=== PATIENT | male | born 1960 | race Caucasian/White ===

== ENCOUNTER → 2018-08-22 | Outpatient (CLI) | payer MEDICARE, OTHER ==
[2018-08-22 11:40] LABS: COLLECTION METHOD CLEAN CATCH
[2018-08-22 12:13] LABS: AMORPHOUS CRYSTAL Present /uL; PH 6 (5-8); SQUAMOUS EPITHELIAL 0-2 /hpf; URINE APPEARANCE Hazy; URINE BACTERIA None Seen /hpf; URINE BILIRUBIN Negative (NEGATIVE); URINE BLOOD Negative (NEGATIVE); URINE CALCIUM OXALATE CRYSTAL Present /hpf; URINE COLOR Yellow; URINE GLUCOSE Negative (NEGATIVE); URINE KETONE Negative (NEGATIVE); URINE LEUKOCYTE ESTERASE Negative (NEGATIVE); URINE NITRATE Negative (NEGATIVE); URINE PROTEIN(semi-quant) Negative (NEGATIVE); URINE RBC None Seen /hpf; URINE UROBILINOGEN >=4.0 mg/dL (NEGATIVE); URINE WBC 0-2 /hpf
== END ==
LOC: ZCOL.LAB 11:24
PROVIDERS: Family Medicine
DX: R30.0 Dysuria (principal); R41.82 Altered mental status, unspecified; R53.82 Chronic fatigue, unspecified

== ENCOUNTER → 2018-11-11 | Outpatient (CLI) | payer MEDICARE, OTHER ==
[2018-11-11 15:33] LABS: BASO % 0.5 % (0.0-2.0); EOS # 0.2 (0.0-0.7); GRAN # 3.5 (1.4-6.5); GRAN % 60.6 % (42.2-75.2); HEMOGLOBIN 11.8 g/dl (13.5-18.0); LYMPH # 1.6 (1.2-3.4); LYMPH % 27.4 % (20.0-51.0); MEAN CELL VOLUME 96 fl (80.0-100.0); MEAN CORPUSCULAR HEMOGLOBIN 31 pg (27.0-31.0); MEAN CORPUSCULAR HGB CONC 33 g/dl (33.0-37.0); MONO # 0.4 (0.1-0.6); MONO % 7.2 % (1.7-9.3); PLATELET COUNT 159 K/mm3 (130-400); RED BLOOD COUNT 3.78 M/mm3 (4.20-5.60); REDCELL DISTRIBUTION WIDTH-CV 13.1 % (11.5-14.5)
[2018-11-11 15:35] LABS: HEMATOCRIT 36.3 % (42.0-52.0)
[2018-11-11 15:36] LABS: ALBUMIN 3.4 gm/dL (3.5-5.0); BILIRUBIN,TOTAL 0.3 mg/dL (0.0-1.0); CALCIUM 8.4 mg/dL (8.4-10.2); CREATININE, serum 0.78 (0.66-1.25); POTASSIUM 3.6 mmol/L (3.4-5.0); TOTAL PROTEIN 5.8 gm/dL (6.4-8.2)
[2018-11-11 16:46] LABS: AMORPHOUS CRYSTAL Present /uL; MUCOUS Present /lpf; PH 5 (5-8); SQUAMOUS EPITHELIAL None Seen /hpf; URINE APPEARANCE Turbid; URINE BACTERIA None Seen /hpf; URINE BILIRUBIN Negative (NEGATIVE); URINE BLOOD Negative (NEGATIVE); URINE COLOR Amber; URINE GLUCOSE Negative (NEGATIVE); URINE KETONE Negative (NEGATIVE); URINE LEUKOCYTE ESTERASE Negative (NEGATIVE); URINE NITRATE Negative (NEGATIVE); URINE PROTEIN(semi-quant) Negative (NEGATIVE); URINE RBC None Seen /hpf; URINE UROBILINOGEN Negative (NEGATIVE)
[2018-11-11 16:48] LABS: COLLECTION METHOD CLEAN CATCH
== END ==
LOC: ZCOL.LAB 15:19
PROVIDERS: Family Medicine
DX: R41.82 Altered mental status, unspecified (principal)

== ENCOUNTER 2018-12-12 11:59 | Emergency (ER) | payer MEDICARE, OTHER ==
[~2018-12-12] VITALS: Ht 182.9 cm; Wt 90.9 kg
[2018-12-12 12:01] VITALS: TEMP 98
[2018-12-12 12:27] LABS: BASO % 0.5 % (0.0-2.0); EOS # 0.2 (0.0-0.7); EOS % 3.7 % (0-4.0); GRAN # 3.3 (1.4-6.5); GRAN % 57.5 % (42.2-75.2); HEMATOCRIT 39.7 % (42.0-52.0); HEMOGLOBIN 12.8 g/dl (13.5-18.0); LYMPH # 1.6 (1.2-3.4); LYMPH % 27.2 % (20.0-51.0); MEAN CELL VOLUME 96 fl (80.0-100.0); MEAN CORPUSCULAR HEMOGLOBIN 31 pg (27.0-31.0); MEAN CORPUSCULAR HGB CONC 32 g/dl (33.0-37.0); MEAN PLATELET VOLUME 10.5 fl (7.4-10.4); MONO # 0.6 (0.1-0.6); MONO % 10.1 % (1.7-9.3); PLATELET COUNT 166 K/mm3 (130-400); RED BLOOD COUNT 4.13 M/mm3 (4.20-5.60); REDCELL DISTRIBUTION WIDTH-CV 13.2 % (11.5-14.5)
[2018-12-12 12:39] LABS: ALANINE AMINOTRANSFERASE 22 U/L (21-72); ALBUMIN 3.9 gm/dL (3.5-5.0); ALKALINE PHOSPHATASE 31 U/L (50-136); ANION GAP 7 mmol/L (7-16); AST,SGOT 27 U/L (15-37); BILIRUBIN,TOTAL 0.5 mg/dL (0.0-1.0); BLOOD UREA NITROGEN 16 mg/dL (9-20); CALCIUM 8.9 mg/dL (8.4-10.2); CARBON DIOXIDE 30 mmol/L (22-30); CHLORIDE 107 mmol/L (98-107); CREATININE, serum 0.74 (0.66-1.25); GLUCOSE 70 mg/dL (74-106); LIPASE 76 U/L (23-300); POTASSIUM 4.1 mmol/L (3.4-5.0); SODIUM 143 mmol/L (137-145); TOTAL PROTEIN 6.7 gm/dL (6.4-8.2)
[2018-12-12 12:45] LABS: C-REACTIVE PROTEIN < 0.5 mg/dL (0.0-0.9)
[2018-12-12] MEDS ORDERED: DEPAKOTE 250MG250 MG PO (13:00)
[2018-12-12] MEDS ORDERED: RISPERDAL2 MG PO (13:00)
[2018-12-12] MEDS ORDERED: DEPAKOTE ER 50500 MG PO (13:01)
[2018-12-12 14:00] VITALS: BP 109/69; PULSE 49
== END 2018-12-12 15:00 | disposition home or self-care (01) ==
LOC: COL.ER 11:59
PROVIDERS: Emergency Medicine
DX: R10.9 Unspecified abdominal pain (principal); G30.9 Alzheimer's disease, unspecified; F02.80 Dementia in other diseases classified elsewhere, unspecified severity, without behavioral disturbance, psychotic disturbance, mood disturbance, and anxiety
CPT/HCPCS: J2270; J2405; J7030

== ENCOUNTER 2018-12-16 10:08 | Emergency (ER) | payer MEDICARE, OTHER ==
[~2018-12-16] VITALS: Ht 182.9 cm; Wt 86.4 kg
[~2018-12-16 10:08] MED LIST: DEPAKOTE 250MG250 MG PO; DEPAKOTE ER 50500 MG PO; RISPERDAL2 MG PO
[2018-12-16 10:09] VITALS: TEMP 97
[2018-12-16 10:40] LABS: BASO % 0.7 % (0.0-2.0); EOS # 0.2 (0.0-0.7); EOS % 3.6 % (0-4.0); GRAN # 3.3 (1.4-6.5); GRAN % 59.1 % (42.2-75.2); HEMATOCRIT 37.6 % (42.0-52.0); HEMOGLOBIN 12.5 g/dl (13.5-18.0); LYMPH # 1.5 (1.2-3.4); LYMPH % 26.4 % (20.0-51.0); MEAN CELL VOLUME 95 fl (80.0-100.0); MEAN CORPUSCULAR HEMOGLOBIN 32 pg (27.0-31.0); MEAN CORPUSCULAR HGB CONC 33 g/dl (33.0-37.0); MEAN PLATELET VOLUME 10.2 fl (7.4-10.4); MONO # 0.5 (0.1-0.6); MONO % 9.7 % (1.7-9.3); PLATELET COUNT 164 K/mm3 (130-400); RED BLOOD COUNT 3.95 M/mm3 (4.20-5.60); REDCELL DISTRIBUTION WIDTH-CV 13.2 % (11.5-14.5)
[2018-12-16 10:56] LABS: ALANINE AMINOTRANSFERASE 19 U/L (21-72); ALBUMIN 3.7 gm/dL (3.5-5.0); ALKALINE PHOSPHATASE 30 U/L (50-136); ANION GAP 5 mmol/L (7-16); AST,SGOT 22 U/L (15-37); BILIRUBIN,TOTAL 0.3 mg/dL (0.0-1.0); BLOOD UREA NITROGEN 17 mg/dL (9-20); CALCIUM 8.7 mg/dL (8.4-10.2); CARBON DIOXIDE 32 mmol/L (22-30); CHLORIDE 104 mmol/L (98-107); CREATININE, serum 0.76 (0.66-1.25); GLUCOSE 75 mg/dL (74-106); LIPASE 67 U/L (23-300); POTASSIUM 3.9 mmol/L (3.4-5.0); SODIUM 142 mmol/L (137-145); TOTAL PROTEIN 6.2 gm/dL (6.4-8.2)
[2018-12-16 11:01] LABS: C-REACTIVE PROTEIN < 0.5 mg/dL (0.0-0.9)
[2018-12-16] MEDS ORDERED: TYLENOL 500MG500 MG PO (12:16)
[2018-12-16 12:30] VITALS: PULSE 63
== END 2018-12-16 12:30 | disposition home or self-care (01) ==
LOC: COL.ER 10:08
PROVIDERS: Emergency Medicine
DX: R10.9 Unspecified abdominal pain (principal); G30.9 Alzheimer's disease, unspecified; F02.80 Dementia in other diseases classified elsewhere, unspecified severity, without behavioral disturbance, psychotic disturbance, mood disturbance, and anxiety
CPT/HCPCS: J7030; Q9967

== ENCOUNTER → 2019-01-28 | Outpatient (CLI) | payer MEDICARE, OTHER ==
[~2019-01-28] MED LIST changes: +TYLENOL 500MG500 MG PO
[2019-01-28 20:16] LABS: COLLECTION METHOD CLEAN CATCH
[2019-01-28 20:39] LABS: BASO % 0.2 % (0.0-2.0); EOS # 0.1 (0.0-0.7); EOS % 1.7 % (0-4.0); GRAN # 3.8 (1.4-6.5); GRAN % 71.7 % (42.2-75.2); HEMATOCRIT 38.2 % (42.0-52.0); HEMOGLOBIN 12.7 g/dl (13.5-18.0); LYMPH # 0.9 (1.2-3.4); LYMPH % 16.6 % (20.0-51.0); MEAN CELL VOLUME 94 fl (80.0-100.0); MEAN CORPUSCULAR HEMOGLOBIN 31 pg (27.0-31.0); MEAN CORPUSCULAR HGB CONC 33 g/dl (33.0-37.0); MEAN PLATELET VOLUME 11.2 fl (7.4-10.4); MONO # 0.5 (0.1-0.6); MONO % 9.4 % (1.7-9.3); PLATELET COUNT 165 K/mm3 (130-400); RED BLOOD COUNT 4.06 M/mm3 (4.20-5.60); REDCELL DISTRIBUTION WIDTH-CV 12.5 % (11.5-14.5)
[2019-01-28 20:46] LABS: ALBUMIN 3.8 gm/dL (3.5-5.0); BILIRUBIN,TOTAL 0.2 mg/dL (0.0-1.0); CALCIUM 8.8 mg/dL (8.4-10.2); CREATININE, serum 0.73 (0.66-1.25); POTASSIUM 4.2 mmol/L (3.4-5.0); TOTAL PROTEIN 6.2 gm/dL (6.4-8.2)
[2019-01-28 21:09] LABS: MUCOUS Present /lpf; PH 5 (5-8); SQUAMOUS EPITHELIAL None Seen /hpf; URINE APPEARANCE Clear; URINE BACTERIA None Seen /hpf; URINE BILIRUBIN Negative (NEGATIVE); URINE BLOOD Negative (NEGATIVE); URINE COLOR Yellow; URINE GLUCOSE Negative (NEGATIVE); URINE KETONE Trace (NEGATIVE); URINE LEUKOCYTE ESTERASE Negative (NEGATIVE); URINE NITRATE Negative (NEGATIVE); URINE PROTEIN(semi-quant) Negative (NEGATIVE); URINE RBC 0-2 /hpf; URINE UROBILINOGEN Negative (NEGATIVE); URINE WBC 0-2 /hpf
== END ==
LOC: COL.LAB 19:26
PROVIDERS: Family Medicine
DX: F30.2 Manic episode, severe with psychotic symptoms (principal)

== ENCOUNTER 2019-02-18 12:52 | Emergency (ER) | payer MEDICARE, OTHER ==
[~2019-02-18] VITALS: Ht 188 cm; Wt 79.5 kg
[2019-02-18 12:57] VITALS: BP 101/69; TEMP 98.6
[2019-02-18] MEDS ORDERED: ATHLETE'S FOOT1% TP (13:38)
[2019-02-18 14:08] VITALS: PULSE 57
== END 2019-02-18 14:06 | disposition home or self-care (01) ==
LOC: COL.ER 12:52
DX: N48.1 Balanitis (principal); G30.9 Alzheimer's disease, unspecified; F02.80 Dementia in other diseases classified elsewhere, unspecified severity, without behavioral disturbance, psychotic disturbance, mood disturbance, and anxiety

== ENCOUNTER → 2019-02-26 | Outpatient (CLI) | payer MEDICARE ==
[~2019-02-26] MED LIST changes: +ATHLETE'S FOOT1% TP
== END ==
LOC: BHSO 13:05
DX: F31.73 Bipolar disorder, in partial remission, most recent episode manic (principal)

== ENCOUNTER → 2019-05-01 | Outpatient (CLI) | payer MEDICARE | LOC: BHSO 10:04 | DX: F41.1 Generalized anxiety disorder (principal) | CPT/HCPCS: G0463 ==